=== PATIENT | female | born 1965 | race Caucasian/White ===

== ENCOUNTER 2017-06-20 07:34 | Day surgery (SDC) | payer BC ==
[~2017-06-20 07:34] MED LIST: Buffered Lidocaine 0.9% SYRIN* 5 ML/SYR SYRINGE INTRADERM ONE; DiMENhydriNATE IV* 50 MG/ML VIAL IV PUSH PRN; Famotidine TAB* 20 MG PO ONE; Naloxone* 0.4 MG/ML 1 ML VIAL IV PRN; PROCHLORPERAZINE INJ 5 MG/ML 2 ML VIAL IV PRN; Scopolamine 1.5 mg* PATCH TRANSDERM ONE; fentaNYL* 50 MCG/ML 2 ML VIAL (100 MCG VIAL) IV PRN; oxyCODONE/Acetamin 5/325 MG* TAB PO PRN
[2017-06-20] MEDS ORDERED: Midazolam* 1 MG/ML 5 ML VIAL (5 MG) ONE (07:56)
[2017-06-20] MEDS ORDERED: fentaNYL* 50 MCG/ML 2 ML VIAL (100 MCG VIAL) ONE (07:56)
[2017-06-20] MEDS ORDERED: Scopolamine 1.5 mg* PATCH ONE (08:00)
[2017-06-20] MEDS ORDERED: Famotidine TAB* 20 MG ONE (08:00)
[2017-06-20] MEDS ORDERED: ceFAZolin 2 GM PREMIX (*) 2 GM/50 ML BAG IVPB ONE (08:21)
[2017-06-20] MEDS ORDERED: Bupivacaine 0.5% SDV PF* 10-30ML VIAL ONE (08:50)
[2017-06-20] MEDS ORDERED: Lidocaine 1% INJ* 10 MG/ML 30 ML SDV ONE (08:50)
[2017-06-20] MEDS ORDERED: Dexamethasone IV* 4 MG/ML 1 ML (4 MG) ONE ×2 (08:50→09:35)
[2017-06-20] MEDS ORDERED: Propofol* 10 MG/ML 20 ML BTL IV PUSH ONE (09:35)
[2017-06-20] MEDS ORDERED: Ketorolac INJ* 30 MG/ML 1 ML VIAL ONE (09:35)
[2017-06-20] MEDS ORDERED: Lidocaine 2% PF * 5 ML VIAL ONE (09:35)
[2017-06-20] MEDS ORDERED: Ondansetron INJ* 2 MG/ML VIAL ONE (09:35)
[2017-06-20 10:33] VITALS: BP 115/67
--- NOTE | 2017-06-20 11:33 | OP ---
DATE OF OPERATION: 06/20/17 - [facility] [place] DATE OF : 63 SURGEON: Kei Burks DPM TOOL KEEPER: None. ANESTHESIA: MAC with local. PRE-OP DIAGNOSIS: Painful bunion deformity of the left foot. POST-OP DIAGNOSIS: Painful bunion deformity of the left foot. OPERATIVE PROCEDURE: Simple bunionectomy of left foot. PATHOLOGY: Degenerative bone. HEMOSTASIS: Pneumatic ankle tourniquet. ESTIMATED BLOOD LOSS: Less than 10 cc. INDICATIONS: The patient with chronic left forefoot pain and progressive deformity, causing pain on wearing shoes in walking. We have discussed extensively the structural considerations with her bunion and different options for bunion surgery. She opts for a simple bunionectomy at this time as opposed to more corrective bunionectomy with osteotomy due to her work and home schedule demands. She understands limitations of this type of procedure as well as the likelihood of recurrence in time. The patient opts for surgery at this time to attempt to decrease the deformity and decrease the pain to improve her function. DESCRIPTION OF PROCEDURE: The patient was brought to the operating room and placed on the operating room table in supine position. The anesthesia department administered IV sedation and a peripheral nerve block was performed of the left foot with a 1:1 mixture of 1% lidocaine plain and 0.5% Marcaine plain. The left foot was then prepped and draped in the usual fashion. The left foot was then exsanguinated with an Esmarch bandage and pneumatic ankle tourniquet was inflated to 250 mmHg above a well-padded right ankle. Attention was directed to the dorsal medial aspect of the left great toe joint where a curvilinear incision was made. The incision was deepened through the subcutaneous tissues and care being taken to retract neurovascular structures and cauterize the superficial bleeders as needed. Next, an inverted L capsular incision was made to allow exposure of the joint. A McGlamry elevator was needed to free the plantar lateral adhesions of the sesamoid apparatus. There is noted to be no significant cartilaginous defects or erosions upon inspection of the joint. Next, dissection was carried into the 1st metatarsal space where a traditional lateral release was performed transecting the conjoint tendon of the adductor hallucis, portion of the lateral capsule and lateral fibular sesamoid ligament. The extensor hallucis brevis tendon was also identified and transected. Attention was directed to the 1st metatarsal head where a sagittal saw was then used to resect the medial eminence of the 1st metatarsal head in a manner as to preserve the sagittal groove. The resultant bone was sent off the field as specimen. A power bur was used to smooth rough edges. The surgical site was flushed with copious amounts of normal sterile saline. Next, a medial capsulorrhaphy was performed resecting redundant medial capsule. Next, periosteal and capsular tissue closure was performed and secured with 2-0 Vicryl while holding the hallux in the rectus in corrected position. 4-0 Vicryl then used to reapproximate the subcutaneous tissue and 5-0 nylon was used to reapproximate and secure the skin. A 12 mg of dexamethasone phosphate was infiltrated about the joint and the incision was dressed with Xeroform gauze , Artie, and light Coban wrap. It should be noted the dressing was applied while holding the hallux in the rectus position. The pneumatic ankle tourniquet was deflated about the left ankle and a prompt hyperemic response was noted of all 5 digits of the patient's left foot. Having appeared to have tolerated the procedures and anesthesia well, the patient was transported via cart from the operating room to the Recovery in satisfactory condition with capillary refill less than 3 seconds to all digits of the left foot. [id number]/[facility] #: [id number] MTDD
[2017-06-23] MEDS ORDERED: Scopolamine PATCH Remove* 1 NOTE MISC PATCH OFF ONE (06:00)
== END 2017-06-20 10:44 | disposition home or self-care (01) ==
LOC: OREAST 07:34
PROVIDERS: ATTEND Podiatrist Foot Surgery
DX: M21.612 Bunion of left foot (principal)
CPT/HCPCS: 88304; 88311; A9270-GY; J0690; J1100; J1885; J2250; J2405; J2704; J3010